=== PATIENT | male | born 1940 | race Caucasian/White ===

== ENCOUNTER 2016-12-08 09:12 | Emergency (ER) | payer MEDICARE ==
[~2016-12-08] VITALS: Ht 175.3 cm; Wt 74.8 kg
[2016-12-08] MEDS ORDERED: PAXIL PO (09:25)
[2016-12-08 10:23] LABS: HEMATOCRIT 36.3 % (36.7-47.1); HEMOGLOBIN 12.5 g/dL (12.5-16.3); LYMPHOCYTES # (AUTO) 1.9 K/uL (20.0-40.0); MEAN CORPUSCULAR HEMOGLOBIN 32.3 uug (23.8-33.4); MEAN CORPUSCULAR HGB CONC 34 g/dL (32.5-36.3); MEAN CORPUSCULAR VOLUME 93.9 fL (73.0-96.2); MONOCYTES # (AUTO) 1.3 K/uL (2.0-10.0); MONOCYTES % (AUTO) 12.3 % (0.0-11.0); NEUTROPHILS # (AUTO) 7.3 K/uL (1.8-8.9); NEUTROPHILS % (AUTO) 69.7 % (38.5-71.5); PLATELET COUNT (AUTO) 111 K/uL (152-348); RED BLOOD CELL COUNT(AUTO) 3.87 MIL/uL (4.06-5.63); WHITE BLOOD COUNT (AUTO) 10.5 K/uL (3.6-10.2)
--- NOTE | 2016-12-08 10:25 | NUR ---
Pt back from CT, NAD noted at this time. VS: BP 113/52, HR 78,, RR 17, PULSE OX 96% (RA).
[2016-12-08 10:36] LABS: ALANINE AMINOTRANSFERASE 22 U/L (16-63); ALKALINE PHOSPHATASE 69 U/L (50-136); ASPARTATE AMINOTRANSFERASE 20 U/L (15-37); BILIRUBIN,DIRECT 0.1 mg/dL (0.0-0.2); BILIRUBIN,TOTAL 0.5 mg/dL (0.2-1.0); CARBON DIOXIDE 29 mmol/L (21-32); CHLORIDE 102 mmol/L (98-107); CREATININE 1.3 mg/dL (0.6-1.3); GLUCOSE 99 mg/dL (74-106); POTASSIUM 3.9 mmol/L (3.5-5.1); TOTAL PROTEIN, SERUM 5.9 g/dL (6.4-8.2); UREA NITROGEN, BLOOD 21 mg/dL (7-18)
--- NOTE | 2016-12-08 11:15 | NUR ---
Pt ambulated to restroom with steady gait, urine specimen obtained and sent to lab.
[2016-12-08 11:27] LABS: *BILIRUBIN,URIN NEGATIVE (NEGATIVE); *BLOOD, URINE Trace-lysed (NEGATIVE); *CLARITY,URINE CLEAR (CLEAR); *COLOR,URINE YELLOW (YELLOW); *KETONES,URINE NEGATIVE (NEGATIVE); *PROTEIN,URINE TRACE (NEGATIVE); *UROBILINOGEN,URINE 0.2 E.U./dl (NORMAL); LEUKOCYTE ESTERASE ,URINE NEGATIVE (NEGATIVE); NITRITE, URINE NEGATIVE (NEGATIVE); PH,URINE 5.5 (5.0-8.0); UGLUCOSE NEGATIVE (NEGATIVE)
[2016-12-08 11:49] LABS: BACTERIA,URINE NONE SEEN /HPF (NONE SEEN); MUCUS,URINE FEW /LPF (0-FEW); SQUAMOUS EPITHELIAL CELL,UR FEW /HPF (NONE SEEN); WBC,URINE 0-3 /HPF (0-3)
--- NOTE | 2016-12-08 12:23 | NUR ---
IV removed. Catheter intact and site benign. Pressure and 4x4 gauze applied to site. No bleeding noted. Patient discharged to home in stable conditon with . Written and verbal after care instructions given. Patient verbalizes understanding of instructions. Stressed follow up with pmd or return to ER for worsening s/s.
== END 2016-12-08 12:25 | disposition home or self-care (01) ==
LOC: ER 09:12
DX: R10.32 Left lower quadrant pain (principal); E86.0 Dehydration; N28.1 Cyst of kidney, acquired; N20.0 Calculus of kidney; E78.00 Pure hypercholesterolemia, unspecified; I25.10 Atherosclerotic heart disease of native coronary artery without angina pectoris
CPT/HCPCS: 36415; 71010; 74176; 80048; 80076; 81001; 83605; 83880; 84484; 85025; 85730; 87040 ×2; 87086; 93005; 96361; 96365; 96367; 99285; A4663; J0696; J1580; J3490; J7030 ×2; J7040; J7060 ×2; 70030-TC

== ENCOUNTER 2018-02-08 19:53 | Emergency (ER) | payer MEDICARE ==
[~2018-02-08] VITALS: Ht 175.3 cm; Wt 72.6 kg
[~2018-02-08 19:53] MED LIST: PAXIL PO
--- NOTE | 2018-02-08 20:21 | NUR ---
DR. MATHEW AT BEDSIDE FOR MSE.
[2018-02-08] MEDS ORDERED: TETRACAINE HCL 0.5% OPHT DROP 2 ML BOTTLE ONE (20:26)
[2018-02-08] MEDS ORDERED: FLUORESCEIN SODIUM 1 MG STRIP ONE (20:26)
[2018-02-08] MEDS ORDERED: FLUORESCEIN SODIUM 1 MG STRIP OP ONE (20:30)
[2018-02-08] MEDS ORDERED: TETRACAINE HCL 0.5% OPHT DROP 2 ML BOTTLE OP ONE (20:30)
--- NOTE | 2018-02-08 20:34 | NUR ---
Note dirk in EDM - 02/08/18 at 2036 by [id number] Patient discharged to home in stable conditon. Written and verbal after care instructions given. Patient verbalizes understanding of instructions. PATIENT LEFT WITH STABLE GAIT.
[2018-02-08 20:35] VITALS: BP 106/62
--- NOTE | 2018-02-08 20:36 | NUR ---
Patient discharged to home in stable conditon. Written and verbal after care instructions given BY DR. MATHEW, PATIENT WAS IN A HURRY TO LEAVE AFTER EXAM WAS COMPLETED. PATIENT LEFT WITH STABLE GAIT.
== END 2018-02-08 20:37 | disposition home or self-care (01) ==
LOC: ER 19:54
DX: H11.31 Conjunctival hemorrhage, right eye (principal); E78.00 Pure hypercholesterolemia, unspecified
CPT/HCPCS: A4663